=== PATIENT | female | born 1940 | race Caucasian/White ===

== ENCOUNTER 2018-05-15 15:19 | Emergency (ER) | payer OTHER, BC ==
[2018-05-15] MEDS ORDERED: SODIUM CHLORIDE 1,000 ML IV STA ×2 (15:56→18:02)
[2018-05-15] MEDS ORDERED: ONDANSETRON 4 MG/2 ML VIAL IVPB ONE ×2 (15:56→18:02)
--- NOTE | 2018-05-15 16:07 | PDOC ---
History of Present Illness - History of Present Illness Initial Comments: Patient is a 77 F with PMHx of Breast Cancer s/p lumpectomy (Dx in November), HLD , aFib? (misbeat & extra heartbeat) , who presents to the ED with her son for nausea approximately 1.5 hours prior to arrival. Patient is from [place] and travels to [place] for her chemotherapy treatment. She states that yesterday she had chemotherapy at [facility]. Today around 2:30 pm she began feeling dizzy and nauseous. She states that this feels like her usual dizziness and nausea after she has chemo. She states that she is usually given IV fluids and zofran when she feels like this. She states that the Zofran doesnt usually work for her however. She also reports associated diarrhea. She states that she is not in any current pain. She says she is scheduled for radiation therapy in 3 months for twice a day treatment. She denies fever, chills, vomiting, or coughing. PCP: In [place] (where she is from) Oncologist: [facility] - Sky Santiago [phone] Meds: Zyrtec, Metoprolol, Xanax, Probiotic, Baby aspirin, Lovastatin. <Cris Sherman - Last Filed: 05/15/18 17:19> - General History Source: Patient, Family Exam Limitations: No Limitations <Iain Montejo - Last Filed: 05/15/18 18:12> - General Chief Complaint: Nausea/Vomiting Stated Complaint: NAUSEA Time Seen by Provider: 05/15/18 15:41 Past History <Cris Sherman - Last Filed: 05/15/18 17:19> <Iain Montejo - Last Filed: 05/15/18 18:12> - Past Medical History Allergies/Adverse Reactions: Allergies Allergy/AdvReac Type Severity Reaction Status Date / Time dicyclomine Allergy Rash Verified 05/15/18 15:55 doxycycline Allergy Rash Verified 05/15/18 15:55 exemestane AdvReac Verified 05/15/18 15:55 oxycodone AdvReac Nausea Verified 05/15/18 15:55 Home Medications: Ambulatory Orders Alprazolam [Xanax] 0.25 mg PO BID 05/15/18 Aspirin [ASA -] 81 mg PO DAILY 05/15/18 Cetirizine HCl [Zyrtec -] 10 mg PO BID 05/15/18 Dexamethasone [Decadron] 12 mg PO DAILY 05/15/18 Lovastatin 0 mg PO DAILY 05/15/18 Metoprolol Tartrate [Lopressor -] 25 mg PO BID 05/15/18 Ondansetron [Zofran *Odt*] 8 mg SL TID PRN #15 od.tablet 05/15/18 Pantoprazole Sodium [Protonix -] 40 mg PO AM 05/15/18 Review of Systems - Review of Systems Comments:: GENERAL/CONSTITUTIONAL: No fever or chills. No weakness. HEAD, EYES, EARS, NOSE AND THROAT: No change in vision. No ear pain or discharge. No sore throat. CARDIOVASCULAR: No chest pain or shortness of breath. RESPIRATORY: No cough, wheezing, or hemoptysis. GASTROINTESTINAL: +nausea, no vomiting, +diarrhea, no constipation. GENITOURINARY: No dysuria, frequency, or change in urination. MUSCULOSKELETAL: No joint or muscle swelling or pain. No neck or back pain. SKIN: No rash NEUROLOGIC: No headache, + dizziness, no loss of consciousness, no change in strength/sensation. ENDOCRINE: No increased thirst. HEMATOLOGIC/LYMPHATIC: No anemia, easy bleeding, or history of blood clots. ALLERGIC/IMMUNOLOGIC: No hives or skin allergy. 05/15/18 16:48 <Cris Sherman - Last Filed: 05/15/18 17:19> *Physical Exam - Vital Signs Last Vital Signs Temp Pulse Resp BP Pulse Ox 97.5 F L 61 19 114/45 95 05/15/18 15:55 05/15/18 15:55 05/15/18 15:55 05/15/18 15:55 05/15/18 15:55 - Physical Exam Comments: GENERAL: Awake, alert, and fully oriented, in no acute distress HEAD: No signs of trauma EYES: PERRLA, EOMI, sclera anicteric, conjunctiva clear ENT: Auricles normal inspection, hearing grossly normal, nares patent. Moist mucosa NECK: Normal ROM, supple,no JVD or masses LUNGS: Breath sounds equal, clear to auscultation bilaterally. No wheezes, and no crackles ABDOMEN: Soft, nontender. No guarding, no rebound. No masses EXTREMITIES: Normal range of motion, no edema. No clubbing or cyanosis. No cords, erythema, or tenderness NEUROLOGICAL: Cranial nerves II through XII grossly intact. Normal speech, normal gait SKIN: Warm, Dry, normal turgor, no rashes or lesions noted. <Cris Sherman - Last Filed: 05/15/18 17:19> Heart Score/ECG Review #1 ECG reviewed & interpreted by me at: 15:40 05/15/18 16:27 NSR 61 with 1st degree AV block, no std/dhara, T wave flat avL, QTC 448 msec <Iain Montejo - Last Filed: 05/15/18 18:12> ED Treatment Course - LABORATORY CBC & Chemistry Diagram: 05/15/18 16:25 05/15/18 16:25 - Medications Given in the ED: ED Medications Discontinued Medications Generic Name Dose Route Start Last Admin Trade Name Freq PRN Reason Stop Dose Admin Ondansetron HCl 4 mg 05/15/18 15:56 05/15/18 16:40 Zofran Injection IVPB 05/15/18 15:57 4 mg ONCE ONE Administration <Cris Sherman - Last Filed: 05/15/18 17:19> - LABORATORY CBC & Chemistry Diagram: 05/15/18 16:25 05/15/18 16:25 <Iain Montejo - Last Filed: 05/15/18 18:12> Medical Decision Making - Medical Decision Making 05/15/18 16:04 A portion of this note was documented by scribe services under my direction. I have reviewed the details of the note, within reason, and agree with the documentation with the following case summary and management plan written by me. Patient treated in the ED. Nursing notes are reviewed and incorporated into the medical decision-making. Vital signs reviewed. Peripheral IV access obtained by the nurse, laboratory studies are drawn and sent, reviewed and interpreted by myself. 77-year-old female with history of hyperlipidemia, acid reflux, breast cancer status post lumpectomy presents with nausea or vomiting since today. The patient has received every 3 weekly chemotherapy infusion at [facility] in [facility]. She typically develops symptoms of dizziness, lightheadedness and nausea and vomiting after her chemotherapy. She reports that the symptoms that she has today is exactly similar to every incidence that she had for a chemotherapy infusion. Denies fevers or chills. Denies chest pain. Denies diarrhea. Came into the ED for further evaluation. She had attempted take oral Zofran and sublingual Zofran at home with minimal relief. Denies fevers or chills. I suspect the patient's symptoms are likely secondary to chemotherapy therapy infusion. We'll obtain blood work and give IV fluids and IV Zofran and reassess. If the patient's workup is unremarkable the patient reports feeling better, the patient be discharged home with oncology follow-up. 05/15/18 18:09 CBC, BMP 05/15/18 16:25 05/15/18 16:25 CMP Sodium 133 mmol/L (136-145) L 05/15/18 16:25 Potassium 4.0 mmol/L (3.5-5.1) 05/15/18 16:25 Chloride 100 mmol/L (98-107) 05/15/18 16:25 Carbon Dioxide 25 mmol/L (21-32) 05/15/18 16:25 Anion Gap 8 (8-16) 05/15/18 16:25 BUN 9 mg/dL (7-18) 05/15/18 16:25 Creatinine 0.8 mg/dL (0.55-1.02) 05/15/18 16:25 Creat Clearance w eGFR > 60 (>60) 05/15/18 16:25 Random Glucose 158 mg/dL (74-106) H 05/15/18 16:25 Calcium 8.8 mg/dL (8.5-10.1) 05/15/18 16:25 Magnesium 1.8 mg/dL (1.8-2.4) 05/15/18 16:25 Total Bilirubin 0.4 mg/dL (0.2-1.0) 05/15/18 16:25 AST 126 U/L (15-37) H 05/15/18 16:25 ALT 235 U/L (12-78) H 05/15/18 16:25 Alkaline Phosphatase 120 U/L (45-117) H 05/15/18 16:25 Total Protein 6.7 g/dl (6.4-8.2) 05/15/18 16:25 Albumin 3.3 g/dl (3.4-5.0) L 05/15/18 16:25 Pt has elevated LFTs, but pt reports that she has a history of of fatty liver disease. Pt reports feeling significantly better after IVF and zofran. Pt is ambulatory. Will d/c home with son. I discussed the physical exam findings, ancillary test results and final diagnoses with the patient. I answered all of the patient's questions. The patient was satisfied with the care received and felt comfortable with the discharge plan and treatment plan. The patient will call their primary care physician within 24 hours to arrange follow-up and will return to the Emergency Department with any new, persistant or worsening symptoms. <Iain Montejo - Last Filed: 05/15/18 18:12> *DC/Admit/Observation/Transfer - Attestations Scribe Attestion: 05/15/18 16:50 Documentation prepared by Cris Sherman, acting as medical device assembler for Iain Montejo MD. <Cris Sherman - Last Filed: 05/15/18 17:19> - Discharge Dispostion Decision to Admit order: No <Iain Montejo - Last Filed: 05/15/18 18:12> Diagnosis at time of Disposition: Nausea, Dehydration - Discharge Dispostion Disposition: HOME Condition at time of disposition: Improved - Prescriptions Prescriptions: Ondansetron [Zofran *Odt*] 8 mg SL TID PRN #15 od.tablet PRN Reason: Nausea - Referrals Referrals: ON STAFF,NOT [Primary Care Provider] - - Patient Instructions Printed Discharge Instructions: DI for Nausea -- Adult, DI for Dehydration -- Adult Additional Instructions: Please drink plenty of fluids and rest. It may take several days before your symptoms improve. Please follow up with your doctor.
[2018-05-15 16:11] VITALS: TEMP 97.5; BMI 26.4
[2018-05-15 16:39] LABS: BASO % 0.3 % (0-2.0); HEMOGLOBIN 12.3 GM/dL (10.7-15.3); LYMPH % 4.7 % (8-40); MCH 31.5 pg (25.7-33.7); MCHC 34.2 g/dl (32.0-36.0); MEAN CELL VOLUME 91.9 fl (80-96); MEAN PLT VOLUME 7.5 fl (7.5-11.1); MONO % 1.2 % (3.8-10.2); NEUT % 93.8 % (42.8-82.8); PLATELET COUNT 308 K/MM3 (134-434); RBC 3.92 M/mm3 (3.60-5.2); RDW 14.4 % (11.6-15.6); WHITE BLOOD COUNT 10.6 K/mm3 (4.0-10.0)
[2018-05-15] MEDS ORDERED: ONDANSETRON 4 MG/2 ML VIAL ONE ×2 (16:40→18:03)
[2018-05-15 17:16] LABS: ALBUMIN 3.3 g/dl (3.4-5.0); ALK PHOS 120 U/L (45-117); ANION GAP 8 (8-16); BILIRUBIN,TOTAL 0.4 mg/dL (0.2-1.0); BLOOD UREA NITROGEN 9 mg/dL (7-18); CALCIUM 8.8 mg/dL (8.5-10.1); CHLORIDE 100 mmol/L (98-107); CO2 25 mmol/L (21-32); CREATININE 0.8 mg/dL (0.55-1.02); GLUCOSE,RANDOM 158 mg/dL (74-106); MAGNESIUM 1.8 mg/dL (1.8-2.4); SGOT/AST 126 U/L (15-37); SGPT/ALT 235 U/L (12-78); SODIUM 133 mmol/L (136-145); TOT PROT 6.7 g/dl (6.4-8.2)
[2018-05-15 17:51] LABS: ANISOCYTOSIS 1+; MACROCYTOSIS 1+; PLATELET ESTIMATE ADEQUATE
[2018-05-15 18:49] VITALS: BP 119/58; PULSE 74
== END 2018-05-15 18:49 | disposition home or self-care (01) ==
LOC: JER 15:19
PROC: 3E0337Z Introduction of Electrolytic and Water Balance Substance into Peripheral Vein, Percutaneous Approach (ICD-10-PCS; principal; 2018-05-15)
PROC: 3E033GC Introduction of Other Therapeutic Substance into Peripheral Vein, Percutaneous Approach (ICD-10-PCS; 2018-05-15)
DX: E86.0 Dehydration (principal); T45.1X5A Adverse effect of antineoplastic and immunosuppressive drugs, initial encounter; Y92.038 Other place in apartment as the place of occurrence of the external cause; I48.91 Unspecified atrial fibrillation; E78.00 Pure hypercholesterolemia, unspecified; C50.919 Malignant neoplasm of unspecified site of unspecified female breast
CPT/HCPCS: 36415; 80053; 83735; 85025; 96361; 96374; 96376; 99283-25; J7030